=== PATIENT | male | born 2000 | race Caucasian/White ===

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

== ENCOUNTER 2019-01-19 10:07 | Emergency (ER) | payer BC, SELFPAY ==
[2019-01-19 10:08] VITALS: BP 112/46; PULSE 64; RESP 16; TEMP 36.2; O2SAT 99; BMI 20.5
--- NOTE | 2019-01-19 10:17 | RAD_ITS ---
STUDY: X-RAY - RIGHT HAND, ATTENTION THUMB. REASON FOR EXAM: Male, 19 years old. Injury to the thumb. TECHNIQUE: 3 view(s) of the finger were obtained. COMPARISON: None. FINDINGS: Normal metacarpal head. Normal metacarpophalangeal joint. Normal proximal phalanx. Normal middle phalanx. Normal distal phalanx. Normal proximal interphalangeal joint. Normal distal interphalangeal joint. RAD/Finger(s) Min 2 Views IMPRESSION: Normal x-ray examination of the finger. Electronically Signed: Mario Zacarias, at 10:46 EDT , Service support ,
--- NOTE | 2019-01-19 11:11 | ED.DCSUM_ITS ---
- ER Visit Summary Date of Service: 01/19/19 Chief Complaint: [Injury to right thumb] History of Present Illness: The patient is a 19 M [presents to the emergency department after injuring his right thumb yesterday. He accidentally smashed his thumb in a car door. Patient is right-hand dominant. Patient seen at urgent care and referred to the ER for evaluation.] Physical Examination: [Right thumb-patient has 100% subungual hematoma noted. Patient has soft tissue swelling to the thumb. Patient has normal range of motion at the IP joint. No obvious deformity. Neurovascular intact.] Test Results: [Obtained showed no fractures] Emergency Department Course and Treatment: [I recommended trephination of the nail to which the patient agreed. Using high heat cautery I was able to trephinate the nail and large amount of old blood was expressed. Clean dressing and cage splint will be applied.] Treatment Plan: [We will up with primary care physician in 5 to 7 days. Patient advised that his nail will likely fall off. Patient advised that he may develop a deformity to the nail or no new nail growth. It is also possible he may have a normal new nail growing.] Disposition: Discharged home in stable condition] Impression: [Crush injury right thumb Subungual hematoma right thumb with nail trephination] This note was generated with [employer] dictation software. It may contain incorrect words, spelling, and punctuation that were not noted in review of the chart prior to signing ED Disposition - Plan for ED Patient: Referrals: Danielito Madera MD [Primary Care Provider] -
--- NOTE | 2019-01-19 11:14 | ED.DEP ---
ED Disposition - Plan for ED Patient: Instructions: CRUSH INJURY, Hand/Finger, Subungual Hematoma Referrals: Danielito Madera MD [Primary Care Provider] - 5-7 Days
== END 2019-01-19 11:36 | disposition home or self-care (01) ==
PROVIDERS: Emergency Provider Emergency Medicine; Family Provider Pediatrics; PCP Pediatrics
DX: S67.01XA Crushing injury of right thumb, initial encounter (principal); S60.111A Contusion of right thumb with damage to nail, initial encounter; W23.0XXA Caught, crushed, jammed, or pinched between moving objects, initial encounter; Y93.9 Activity, unspecified; Y92.810 Car as the place of occurrence of the external cause; F12.90 Cannabis use, unspecified, uncomplicated
CPT/HCPCS: 11740; 11730; 73140; 99283

== ENCOUNTER 2019-02-26 10:35 | Emergency (ER) | payer BC, SELFPAY ==
[2019-02-26 10:36] VITALS: BP 109/73; PULSE 76; RESP 17; TEMP 36.9; O2SAT 98; BMI 20.5
[2019-02-26 10:57] VITALS: BP 117/80; PULSE 66; RESP 12; O2SAT 100
--- NOTE | 2019-02-26 11:11 | ED.VISSUMM ---
- ER Visit Summary Date of Service: 02/26/19 Chief Complaint: Cheeks and below his eyes. History of Present Illness: The patient is a 19 M no seen in past medical history. He has had surgery for prior traumatic intracranial bleed. Patient states he thinks he gets some of his hands and white on his face and now is having swelling from that. This began about an hour ago. He is on no medications. He is on no blood pressure medications. He had one episode of this before secondary to allergic reaction. He denies any wheezing. Physical Examination: Young male no acute distress vital signs stable afebrile. Pulse ox 9% on room air no signs of hypoxia. H EENT exam minimal swelling and redness to his cheeks and below both eyes. This is a with allergic reaction. His tongue and posterior pharynx and lips are not swollen. No trouble breathing or swallowing. No stridor or drooling. Neck nontender no lymphadenopathy. Trachea midline. Lungs clear to auscultation bilaterally. No wheezing. Heart regular rhythm no murmur. Chest wall nontender. Abdomen soft nontender. Moves all 4. No edema. Back nontender. Skin normal. Except for his face was has what appears to be a localized allergic reaction. Test Results: None Emergency Department Course and Treatment: Patient seems to have a localized allergic reaction with swelling of his face. There is no airway obstruction. He will be given a dose of steroid here. Treatment Plan: Prednisone 40 mL a day for 5 days if needed. Return if worse. Disposition: Discharge Impression: Acute facial swelling secondary to allergic reaction of uncertain etiology This note was generated with [employer] dictation software. It may contain incorrect words, spelling, and punctuation that were not noted in review of the chart prior to signing ED Disposition - Plan for ED Patient: Referrals: Danielito Madera MD [Primary Care Provider] -
--- NOTE | 2019-02-26 11:13 | ED.DEP ---
ED Disposition - Plan for ED Patient: Disposition: Home or Assisted Living Instructions: ALLERGIC REACTION, Other (Local) Prescriptions: predniSONE tablet 40 mg PO DAILY 7 Days tab Prescription Printed Referrals: Danielito Madera MD [Primary Care Provider] - As Needed Additional Instructions: Return if the swelling of your face lips or tongue gets a lot worse. Cool compresses to the area. Prednisone daily until the swelling is resolved.
[2019-02-26] MEDS: predniSONE 20 MG Tablet 40 MG PO (11:19)
[2019-02-26 11:24] VITALS: BP 118/75; PULSE 67; RESP 10; O2SAT 100
== END 2019-02-26 11:24 | disposition home or self-care (01) ==
LOC: ED 11:23
PROVIDERS: Emergency Provider Emergency Medicine; Family Provider Pediatrics; PCP Pediatrics
DX: T78.40XA Allergy, unspecified, initial encounter (principal); X58.XXXA Exposure to other specified factors, initial encounter
CPT/HCPCS: 99283; J7030; A4216

== ENCOUNTER 2020-03-23 16:57 | Emergency (ER) | payer BC, SELFPAY ==
[2020-03-23 16:58] VITALS: BP 129/86; PULSE 89; RESP 15; TEMP 36; O2SAT 99; BMI 19.1
--- NOTE | 2020-03-23 17:14 | ED.VIS.GEN ---
History of Present Illness Chief Complaint: Nausea/Vomiting Narrative: This patient is a 20-year-old male who presents with nausea and vomiting. He reports multiple episodes of emesis over the last 2 days. He complains of mild epigastric discomfort which he just attributed to vomiting and does not really describe his pain. He has also had diarrhea however this is been chronic for about 1 month. No fevers cough congestion rhinorrhea sore throat. He recently traveled from [place] to visit his family and his main concern is that his symptoms could possibly be due to Covid. Past Medical History - Allergies and Home Meds Allergies/Adverse Reactions: Allergies No Known Allergies Allergy (Verified 03/23/20 17:00) Primary Care Physician: Danielito Madera MD [Primary Care Provider] - Past Medical History: None Surgical History: no surgical history Smoking Status: Current every day smoker Review of Systems General: Denies: Fever Eyes: Denies: Visual changes - bilaterally ENT: Denies: Bilateral ear pain Cardiovascular: Denies: Chest pain Respiratory: Denies: Dyspnea Gastrointestinal: Reports: Nausea, Vomiting, Diarrhea. Denies: Abdominal pain Musculoskeletal: Denies: Myalgias, Arthralgias Skin: Denies: Rash Neurological: Denies: Headache Hematologic: Denies: Easy bruising Allergy: Denies: Uticaria Physical Exam Vital Signs/Narrative: Vital Signs Temp Pulse Resp BP Pulse Ox 03/23/20 16:58 96.8 F L 89 15 129/86 H 99 Inital Vital Signs reviewed: Yes General: Well nourished Head: Normocephalic Eyes: EOMI ENT: Moist mucous membranes Neck: Supple Cardiovascular: Regular rate, Regular rhythm Respiratory: No distress, CTA bilaterally Abdomen: Soft, Nontender, Nondistended Skin: Normal color Neurological: Alert Psychological: Normal affect Diagnostic/Tx/Re-eval 03/23/20 17:15 Mucosa - Nose SARS-CoV-2 Antigen (Rapid) - Final - Medical Decision Making Patient was given a Zofran ODT. He has had no vomiting while here. COVID-19 antigen is negative. Patient advised that his vomiting and diarrhea may be related to a viral syndrome. He has a benign abdominal exam with no tenderness and he has normal vitals. He was advised on supportive care. He was given a prescription for Zofran for home if needed. Patient discharged. He was advised on bland diet and supportive care. ED Disposition - Plan for ED Patient: Disposition: Home or Assisted Living Diagnosis: Vomiting Instructions: ED Vomiting (Adult) Prescriptions: Ondansetron [Zofran Odt] 4 mg PO Q8H PRN PRN #10 tab PRN Reason: Nausea Prescription Printed Referrals: Danielito Madera MD [Primary Care Provider] -
[2020-03-23] MEDS: Ondansetron ODT 4 MG Tablet PO (17:26)
== END 2020-03-23 18:12 | disposition home or self-care (01) ==
PROVIDERS: Emergency Provider Emergency Medicine; PCP Pediatrics
DX: R11.2 Nausea with vomiting, unspecified (principal); F17.200 Nicotine dependence, unspecified, uncomplicated
CPT/HCPCS: 87426; 99283

== ENCOUNTER 2020-04-03 12:17 | Emergency (ER) | payer MEDICAID, SELFPAY ==
[2020-04-03 12:19] VITALS: BP 116/71; PULSE 64; RESP 18; TEMP 36.3; O2SAT 98; BMI 19.1
--- NOTE | 2020-04-03 12:44 | ED.VISSUMM ---
- ER Visit Summary Date of Service: 04/03/20 Chief Complaint: Dental pain History of Present Illness: The patient is a 20 M who presents with dental pain that is been getting worse over the past 10 days. Patient states he has an appointment with his dentist coming up with his dentist told him to come to the emergency department in case he needed antibiotics. Patient describes his pain as throbbing. Patient states it is over the left lower canine and second molar. Patient states he has been taking ibuprofen which has been helping. Patient does admit to hot and cold sensitivity. Patient also admits to some lower jaw swelling which has improved. Physical Examination: Vital signs are stable. Patient is afebrile. Patient is in no acute distress. Oral mucosa is pink and moist. Neck is supple. Trachea is midline. There is no JVD. There are dental caries noted over the left lower canine and second molar. There is some mild gingival edema around this tooth. There is no discharge or drainage. There is no evidence of any abscess. There is no sublingual edema or erythema. There is no evidence of Adam angina. Emergency Department Course and Treatment: Patient was given a dose of Pen-Vee K here. Patient was given a prescription for Pen-Vee K. Patient was instructed to follow-up with his dentist as scheduled. Patient understood and was agreeable with the plan. All questions were answered. Disposition: Discharge home Impression: Infected dental caries This note was generated with [employer] dictation software. It may contain incorrect words, spelling, and punctuation that were not noted in review of the chart prior to signing ED Disposition - Plan for ED Patient: Disposition: Home or Assisted Living Diagnosis: Infected dental caries Instructions: ED Dental Cavity Prescriptions: Penicillin V Potassium 500 mg PO 4X/DAY #40 tab Prescription Printed Referrals: Danielito Madera MD [Primary Care Provider] - 5-7 Days Dentist,Your [STAFF PHYSICIAN] - Keep [place] appointment
[2020-04-03] MEDS: Penicillin Vk 250 MG Tablet 500 MG PO (12:57)
== END 2020-04-03 12:59 | disposition home or self-care (01) ==
LOC: ED 12:48
PROVIDERS: Emergency Provider Emergency Medicine; PCP Pediatrics
DX: K02.9 Dental caries, unspecified (principal); K04.7 Periapical abscess without sinus
CPT/HCPCS: 99283

== ENCOUNTER 2020-10-09 20:34 | Emergency (ER) | payer MEDICAID, SELFPAY ==
[2020-10-09 20:36] VITALS: BP 115/72; PULSE 81; RESP 16; TEMP 36.3; O2SAT 98; BMI 20.7
--- NOTE | 2020-10-09 21:13 | CT_ITS ---
EXAMINATION : Head CT w/out contrast HISTORY : Head injury COMPARISON : None. TECHNIQUE : Multiple contiguous axial images were obtained from the skull base to the vertex without intravenous contrast. A radiation dose optimization technique was used for this scan. FINDINGS : The ventricles and sulci are normal in size. There is no evidence for acute intracranial hemorrhage, mass effect, or midline shift. There is no extra-axial fluid collection. There is normal day-white differentiation, without CT evidence of acute ischemia or infarct. The skull base and calvarium are unremarkable. The orbits are unremarkable. The paranasal sinuses are clear. The mastoid air cells are well-aerated. The soft tissues are unremarkable. CT/Brain/Head without Contrast IMPRESSION: No acute intracranial abnormality. Electronically Signed: Charles Dominguez MD at 21:35 EDT Tel , Service support ,
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
[2020-10-09 22:07] VITALS: BP 116/70; PULSE 78; RESP 16
== END 2020-10-09 22:07 | disposition home or self-care (01) ==
PROVIDERS: Emergency Provider Emergency Medicine
DX: S09.90XA Unspecified injury of head, initial encounter (principal); V09.20XA Pedestrian injured in traffic accident involving unspecified motor vehicles, initial encounter
CPT/HCPCS: 70450; 99282

== ENCOUNTER 2020-10-23 15:02 | Emergency (ER) | payer MEDICAID, SELFPAY ==
[2020-10-23 15:02] VITALS: BP 118/67; PULSE 78; RESP 16; TEMP 36.5; O2SAT 97; BMI 20.2
--- NOTE | 2020-10-23 17:18 | RAD_ITS ---
INDICATION: constipation EXAMINATION/TECHNIQUE: X-RAY - XR Abdomen 1 View COMPARISON: None FINDINGS: BOWEL GAS PATTERN: Non-obstructive. Small amount of retained stool in the colon. FREE AIR: Not assessed on a single supine view. ORGANOMEGALY: Not seen. CALCIFICATIONS: No abnormal calcifications observed. LOWER CHEST: No acute pathology. BONES AND SOFT TISSUES: No acute pathology. RAD/Abdomen Single View IMPRESSION: Non-obstructive bowel gas pattern. Small amount of retained stool in the colon. Electronically Signed: Charles Dominguez MD at 17:38 EDT Tel , Service support ,
--- NOTE | 2020-10-23 17:32 | EX.ED.DYSGE1 ---
HPI History of Present Illness Chief Complaint: Constipation Informant: patient Narrative Narrative: 20-year-old male states for the past week he has had difficulty moving his bowels. He states that his anus feels swollen. He denies any bleeding. He has been trying some [id number] stool softener. He states he had a similar occurrence about a year and a half ago when he required an enema. PFSH PFSH Home Medications hydrocortisone [Anusol-HC] 1 applic [place] TID PRN #30 g 10/23/20 [Rx Last Taken Unknown] magnesium citrate 300 ml PO X1 #2 bottle 10/23/20 [Rx Last Taken Unknown] sennosides [Senna Lax] 8.6 mg PO DAILY 10/23/20 [History Last Taken 10/23/20] Allergy/AdvReac Type Severity Reaction Status Date / Time coconut Allergy Swelling Verified 10/23/20 15:04 Social History Smoking Status: Current every day smoker tobacco type: e-cigarettes ROS ROS ED Constitutional Constitutional ED: Denies chills or weight loss Eyes Eyes: Denies change in vision or diplopia ENT ENT ED: Denies ear pain, rhinorrhea or sore throat Cardiovascular Cardiovascular: Denies chest pain, orthopnea, palpitations or racing heartbeat Respiratory/Chest Respiratory/Chest: Denies cough, dyspnea or orthopnea Gastrointestinal Gastrointestinal: Reports constipation and other Details: Rectal pain ; Denies abdominal pain, diarrhea, nausea or vomiting Genitourinary Genitourinary ED: Denies dysuria, hematuria or urinary frequency Musculoskeletal Musculoskeletal: Denies arthralgias or myalgias Integumentary Denies abscess or rash Neurologic Neurologic: Denies headache(s) or weakness Psychiatric Psychiatric: Denies anxiety, depression, suicidal ideation or suicidal thoughts Endocrine Endocrinology: Denies polydipsia, polyphagia or polyuria Allergic/Immunologic Allergic/Immunologic ED: Denies mouth swelling, tongue swelling or urticaria EXAM Physical Exam Const Vital Signs: 10/23/20 15:02 Temperature 97.7 F L Temperature Source Temporal Pulse Rate 78 Respiratory Rate 16 Blood Pressure 118/67 Blood Pressure Mean 84 Pulse Ox 97 Oxygen Delivery Method Room Air Positive well nourished and well developed General Appearance ED: well developed HEENT Reports normocephalic, head/scalp atraumatic and moist mucous membranes Eyes PERRL and EOMs intact bilaterally Neck no lymphadenopathy, supple and no JVD Resp normal respiratory effort and clear to auscultation bilaterally Cardio regular rate, regular rhythm and no murmurs GI normal to inspection, nondistended, normoactive bowel sounds and non-tender Palpation: soft Narrative: Rectal examination shows a normal-appearing anus. There is some soft stool in the rectal vault. There is no blood on the glove. Back/Spine no CVA tenderness and normal ROM Extremity normal to inspection General Extremety ED: Negative for edema General Extremity: Negative for edema Neuro oriented x3 and CN's II-XII intact bilaterally Sensorium / Orientation: alert Motor Exam: strength 5/5 throughout Psych mental status grossly normal Mood & Affect: Negative for depressed or tearful Skin no rashes or lesions noted and no wounds MDM MDM MDM Narrative Medical decision making narrative: X-rays did not reveal fecal impaction or obstruction., Recommend that the patient use some magnesium citrate in addition to a stool softener. He shows me a picture of what his anus looks like when it is swollen and appears more hemorrhoidal. I will write for some Anusol HC. Discharge Plan Triage Chief Complaint: Constipation ED Provider: Garth Mo Dx/Rx/DC Orders Clinical Impression: Constipation, Anal or rectal pain Instructions: ED Constipation (Adult) Prescriptions: New magnesium citrate Solution 300 ml PO X1 Qty: 2 RF: 0 hydrocortisone [Anusol-HC] 2.5 % cream with perineal applicator 1 applic [place] TID PRN (Reason: Rectal pain) Qty: 30 RF: 0 No Action sennosides [Senna Lax] 8.6 mg Tablet 8.6 mg PO DAILY RF: 0 Primary Care Provider: Care Physician,No Primary Referrals: Jeanine Uriarte MD [STAFF PHYSICIAN] - As Needed (for primary care/non-emergent care) Care Physician,No Primary [Primary Care Provider] - Disposition Disposition: Home, Self Care
[2020-10-23 17:47] VITALS: PULSE 76; RESP 16; O2SAT 98
== END 2020-10-23 17:47 | disposition home or self-care (01) ==
PROVIDERS: Emergency Provider Emergency Medicine
DX: K59.00 Constipation, unspecified (principal); K62.89 Other specified diseases of anus and rectum; F17.290 Nicotine dependence, other tobacco product, uncomplicated
CPT/HCPCS: 74018; 99282

== ENCOUNTER 2020-11-16 17:16 | Emergency (ER) | payer MEDICAID, SELFPAY ==
[2020-11-16 17:19] VITALS: BP 115/65; PULSE 67; RESP 14; TEMP 37.1; O2SAT 98; BMI 20.2
--- NOTE | 2020-11-16 18:46 | ED.VIS.DENTA ---
HPI History of Present Illness Chief Complaint: Dental Informant: patient Onset/Context/Timing Onset: Today Timing: Continuous Quality: Sharp Location: Right cheek Worsened by: Chewing Relieved by: - (Nothing) Associated Symptoms Assocated Symptom - Dental: face swelling; Negative for fever, cold sensitivity or hot sensitivity Narrative Narrative: Patient presents with right facial swelling that began today. Patient states he went to get his wisdom teeth extracted today. Patient states the oral surgeon injected something into his right cheek and there is some swelling in his right cheek that has been persistent. Patient denies any fevers or chills. Patient denies any sore throat. Patient denies any difficulty breathing or difficulty swallowing. PFSH PFSH no medical history Home Medications NK 11/16/20 [History Last Taken Unknown] Allergy/AdvReac Type Severity Reaction Status Date / Time coconut Allergy Swelling Verified 11/16/20 17:18 no surgical history Social History Smoking Status: Current every day smoker tobacco type: e-cigarettes ROS ROS ED Constitutional Constitutional ED: Denies chills or fever(s) Eyes Eyes: Denies blurry vision or change in vision ENT ENT ED: Denies rhinorrhea or sore throat Cardiovascular Cardiovascular: Denies chest pain or palpitations Respiratory/Chest Respiratory/Chest: Denies cough or dyspnea Gastrointestinal Gastrointestinal: Denies nausea or vomiting Genitourinary Genitourinary ED: Denies dysuria or hematuria Musculoskeletal Musculoskeletal: Denies back pain or neck pain Integumentary Denies abscess or rash Neurologic Neurologic: Denies headache(s) or weakness Allergic/Immunologic Allergic/Immunologic ED: Denies mouth swelling or urticaria EXAM Physical Exam Const Vital Signs: 11/16/20 17:19 Temperature 98.7 F Temperature Source Temporal Pulse Rate 67 Respiratory Rate 14 Blood Pressure 115/65 Blood Pressure Mean 81 Pulse Ox 98 Oxygen Delivery Method Room Air Positive well nourished and well developed General Appearance ED: well developed HEENT HEENT Narrative: There is some edema over the right cheek and buccal mucosa. There is no definite abscess. There is no erythema or warmth. There is no discharge or drainage. Oropharynx is clear. Airway is patent. There is no sublingual edema or erythema. tenderness Mouth ED: Yes tongue normal Mouth: tongue normal Throat: posterior oropharynx normal Neck no lymphadenopathy and supple General: Negative for anterior neck swelling or submandibular swelling Lymph Lymphatic: no lymphadenopathy noted Resp normal respiratory effort and clear to auscultation bilaterally Cardio regular rate and regular rhythm Neuro oriented x3, CN's II-XII intact bilaterally, moves all extremities, no focal motor deficits and no sensory deficits noted Sensorium / Orientation: alert Psych mental status grossly normal MDM MDM MDM Narrative Medical decision making narrative: Patient was given a dose of Pen-Vee K here. Patient was given a prescription for Pen-Vee K. Patient was instructed use ice to the area. Patient was instructed to follow-up with his oral surgeon in 7 to 10 days. Patient understood and was agreeable with the plan. All questions were answered. Discharge Plan Triage Chief Complaint: Dental ED Provider: Keven Freeman Dx/Rx/DC Orders Clinical Impression: Dental infection Instructions: ED Dental Abscess Prescriptions: No Action NK RF: 0 Primary Care Provider: Care Physician,No Primary Referrals: Care Physician,No Primary [Primary Care Provider] - Dentist,Your [STAFF PHYSICIAN] - 1-2 Weeks Disposition Disposition: Home, Self Care
[2020-11-16] MEDS: Penicillin Vk 250 MG Tablet 500 MG PO (19:04)
== END 2020-11-16 19:06 | disposition home or self-care (01) ==
LOC: ED 19:04
PROVIDERS: Emergency Provider Emergency Medicine
DX: K04.7 Periapical abscess without sinus (principal); F17.200 Nicotine dependence, unspecified, uncomplicated
CPT/HCPCS: 99283

== ENCOUNTER 2023-05-05 11:17 | Emergency (ER) | payer MEDICAID, SELFPAY ==
[2023-05-05 11:17] VITALS: BP 115/72; PULSE 78; RESP 16; TEMP 36.9; O2SAT 99; BMI 21.0
--- OUTSIDE RECORDS SUMMARY | 2023-05-05 12:50 | XMS RPT_ITS | CCD ---
Author Name Unknown Address [address] [place] [address] Organization [facility] Care Team Providers Care Chargeback Analyst Name Role Phone Maura Nash Unavailable Maura Nash Unavailable Maura Nash Unavailable Danielito Urena MD Primary Care Provider Danielito Urena MD Primary Care Provider MARIBELL ELLIOTT Attending Unavailable DANIELITO URENA Primary Care Unavailable HALEY ALTMAN Attending Unavailable DANIELITO URENA Primary Care Unavailable Medications Current Medications Medication Drug Class(es) Dates Sig (Normalized) Sig (Original) hydrocortisone 25 mg/ml topical cream (2 sources) Corticosteroid Start: 10-23-2020 End: 02-23-2023 hydrocortisone (ANUSOL-HC) 2.5 % rectal cream Indications: External hemorrhoid by RECTAL route two times a day for 5 days. 28 g 0 02/18/2023 02/23/2023 Active Completed/Discontinued Medications Medication Drug Class(es) Dates Sig (Normalized) Sig (Original) ACETAMINOPHEN-CO DEINE SOLN (3 sources) Opioid Agonist Start: 11-17-2013 ACETAMINOPHEN-CODEINE SOLN 25 ml every 6 hrs ACETAMINOPHEN-CODEINE SOLN [id number] Alf Jules famotidine 20 mg oral tablet (1 source) Histamine-2 Receptor Antagonist Start: 04-14-2020 End: 09-12-2021 take 1 tablet by mouth every twenty-four hours as needed for gastroesophageal reflux disease and gastroesophageal reflux disease famotidine (PEPCID) 20 mg tablet Indications: Gastroesophageal reflux disease, unspecified whether esophagitis present Take 1 tablet by mouth at bedtime as needed. 30 tablet 0 04/14/2020 09/12/2021 Discontinued Problems Active Problems Problem Classification Problem Date Documented Da te Episodic/Chronic Diseases of mouth; excluding dental (1 source) Aphthous ulcer of mouth; Translations: [Recurrent oral aphthae] Episodic Hemorrhoids (3 sources) Internal hemorrhoids; Translations: [Other hemorrhoids] Episodic Other gastrointestinal disorders (1 source) Chronic constipation; Translations: [Other constipation] 02-18-2023 Episodic Past or Other Problems Problem Classification Problem Date Documented Da te Episodic/Chronic Fracture of upper limb (6 sources) Fracture of unspecified part of left clavicle, initial encounter for closed fracture; Translations: [Closed fracture of distal end of radius] Onset: 11-17-2013 07-07-2016 Episodic Other fractures (2 sources) Fracture of unspecified part of left clavicle, subsequent encounter for fracture with routine healing; Translations: [Fracture of unspecified part of left clavicle, subsequent encounter for fracture with routine healing] Onset: 08-12-2016 08-29-2016 Episodic Other non-traumatic joint disorders (3 sources) Shoulder pain; Translations: [Pain in left shoulder] Onset: 06-26-2016 06-26-2016 Episodic Results Test Name Value Interpretation Reference Range Facil it Vital Signs Date Time Vital Sign Value Performing Clinician Facility 02-24-2023 14:08-0500 Body height 165.1 cm Maribell Elliott MD Work Phone: [facility] 02-24-2023 14:08-0500 Body temperature 97.9 [degF] Maribell Elliott MD Work Phone: [facility] 02-24-2023 14:08-0500 Body weight 60.15 kg Maribell Elliott MD Work Phone: [facility] 02-24-2023 14:08-0500 Diastolic blood pressure 58 mm[Hg] Maribell Elliott MD Work Phone: [facility] 02-24-2023 14:08-0500 Heart rate 83 /min Maribell Elliott MD Work Phone: [facility] 02-24-2023 14:08-0500 SaO2% (BldA) [Mass fraction] 98 % Maribell Elliott MD Work Phone: [facility] 02-24-2023 14:08-0500 Systolic blood pressure 116 mm[Hg] Maribell Elliott MD Work Phone: [facility] 02-18-2023 14:16-0500 Body temperature 98.1 [degF] Haley Agapito MONTESSORI TODDLER TEACHER.COAL PULVERIZER OPERATOR Work Phone: [facility] 02-18-2023 14:16-0500 Body weight 57.88 kg Haley Agapito MONTESSORI TODDLER TEACHER.COAL PULVERIZER OPERATOR Work Phone: [facility] 02-18-2023 14:16-0500 Diastolic blood pressure 78 mm[Hg] Haley Agapito MONTESSORI TODDLER TEACHER.COAL PULVERIZER OPERATOR Work Phone: [facility] 02-18-2023 14:16-0500 Heart rate 74 /min Haley Agapito MONTESSORI TODDLER TEACHER.COAL PULVERIZER OPERATOR Work Phone: [facility] 02-18-2023 14:16-0500 Respiratory rate 16 /min Haley Agapito MONTESSORI TODDLER TEACHER.COAL PULVERIZER OPERATOR Work Phone: [facility] 02-18-2023 14:16-0500 SaO2% (BldA) [Mass fraction] 97 % Haley Agapito MONTESSORI TODDLER TEACHER.COAL PULVERIZER OPERATOR Work Phone: [facility] 02-18-2023 14:16-0500 Systolic blood pressure 122 mm[Hg] Haley Agapito MONTESSORI TODDLER TEACHER.COAL PULVERIZER OPERATOR Work Phone: [facility] 09-12-2021 11:07-0400 Body temperature 97.7 [degF] Mike Yeboah MD Work Phone: [facility] 09-12-2021 11:07-0400 Body weight 57.34 kg Mike Yeboah MD Work Phone: [facility] 09-12-2021 11:07-0400 Diastolic blood pressure 82 mm[Hg] Mike Yeboah MD Work Phone: [facility] 09-12-2021 11:07-0400 Heart rate 60 /min Mike Yeboah MD Work Phone: [facility] 09-12-2021 11:07-0400 Respiratory rate 16 /min Mike Yeboah MD Work Phone: [facility] 09-12-2021 11:07-0400 SaO2% (BldA) [Mass fraction] 98 % Mike Yeboah MD Work Phone: [facility] 09-12-2021 11:07-0400 Systolic blood pressure 118 mm[Hg] Mike Yeboah MD Work Phone: [facility] 06-26-2016 08:17-0400 BMI (Body Mass Index) 20.94 kg/m2 [facility] Work Phone: 06-26-2016 08:17-0400 Height 162.56 cm [facility] Work Phone: 06-26-2016 08:17-0400 Weight 55.34 kg [facility] Work Phone: Encounters Encounter Date Encounter Type Care Provider Facility Start: 02-24-2023 End: 02-24-2023 ambulatory MARIBELL ELLIOTT Facility:[facility] Start: 02-24-2023 End: 02-24-2023 Patient encounter procedure Maribell Elliott MD Work Phone: General Surgery Plan of Treatment Date Care Activity Detail Author Start: 11-29-2022 Influenza vaccination Influenza Vaccine (#1) [facility] Start: 03-31-2022 Depression Assessment Depression Assessment [facility] Start: 11-29-2021 Influenza vaccination INFLUENZA (Season Ended) [facility] Start: 10-22-2021 Urine microalbumin profile [facility] Start: 2017 HEPATITIS C SCREENING HEPATITIS C SCREENING [facility] Start: 2017 HIV SCREENING HIV SCREENING [facility] Start: 08-12-2016 End: 08-12-2016 X-ray exam of collar bone X-Ray, Clavicle [facility] Work Phone: Start: 06-26-2016 End: 06-26-2016 X-ray exam of collar bone X-Ray, Clavicle [facility] Work Phone: Start: 2015 Meningococcal B Vaccine: Consider Based On Risk (1 of 2 - Patient Seeks Protection) Meningococcal B Vaccine: Consider Based On Risk (1 of 2 - Patient Seeks Protection) [facility] Start: 12-29-2013 End: 12-29-2013 X-ray exam of wrist X-Ray, Wrist [facility] Work Phone: Start: 12-15-2013 End: 12-15-2013 X-ray exam of wrist X-Ray, Wrist [facility] Work Phone: Start: 11-17-2013 End: 11-17-2013 X-ray exam of wrist X-Ray, Wrist [facility] Work Phone: Start: 2013 PEDS TO ADULT TRANSITION ANNUAL ASSESSMENT PEDS TO ADULT TRANSITION ANNUAL ASSESSMENT [facility] Start: 2011 Adult depression screening assessment DEPRESSION SCREENING [facility] Start: 2011 PEDS TO ADULT TRANSITION INITIAL DISCUSSION PEDS TO ADULT TRANSITION INITIAL DISCUSSION [facility] Start: 2009 MENINGOCOCCAL B: Consider based on risk (1 of 2 - Risk Bexsero 2-dose series) MENINGOCOCCAL B: Consider based on risk (1 of 2 - Risk Bexsero 2-dose series) [facility] Start: 01-10-2004 COVID-19 VACCINE (#1) COVID-19 VACCINE (#1) [facility] Start: 1999 Covid-19 Vaccine (#1) Covid-19 Vaccine (#1) [facility] Immunizations Immunization Date Immunization Notes Care Provider Fa surya 02-28-2016 meningococcal polysaccharide (groups A, C, Y and W-135) diphtheria toxoid conjugate vaccine (MCV4P) Mike Yeboah MD Work Phone: [facility] 02-12-2013 human papilloma viru s vaccine, quadrivalent Mike Yeboah MD Work Phone: [facility] 09-18-2012 human papilloma viru s vaccine, quadrivalent Mike Yeboah MD Work Phone: [facility] 10-23-2011 human papilloma viru s vaccine, quadrivalent Mike Yeboah MD Work Phone: [facility] 10-23-2011 Meningococcal, MCV4, unspecified conjugate formulation(groups A, C, Y and W-135) Mike Yeboah MD Work Phone: [facility] 10-23-2011 tetanus toxoid, redu fatou diphtheria toxoid, and acellular pertussis vaccine, adsorbed Mike Yeboah MD Work Phone: [facility] 10-23-2011 varicella virus vaccine Eugenio Yeboah MD Work Phone: [facility] 01-13-2004 diphtheria, tetanus toxoids and acellular pertussis vaccine Mike Yeboah MD Work Phone: [facility] Work Phone: 01-13-2004 haemophilus influenz ae type b vaccine, HbOC conjugate Mike Yeboah MD Work Phone: [facility] Work Phone: 01-13-2004 pneumococcal conjuga te vaccine, 7 valent Mike Yeboah MD Work Phone: [facility] Work Phone: 03-01-2003 diphtheria, tetanus toxoids and acellular pertussis vaccine Mike Yeboah MD Work Phone: [facility] Work Phone: 03-01-2003 measles, mumps and rubella virus vaccine Mike Yeboah MD Work Phone: [facility] Work Phone: 03-01-2003 poliovirus vaccine, inactivated Mike Yeboah MD Work Phone: [facility] Work Phone: 10-13-2001 diphtheria, tetanus toxoids and acellular pertussis vaccine Mike Yeboah MD Work Phone: [facility] Work Phone: 10-13-2001 hepatitis B vaccine, pediatric or pediatric/adolescent dosage Mike Yeboah MD Work Phone: [facility] Work Phone: 09-22-2000 diphtheria, tetanus toxoids and acellular pertussis vaccine Mike Yeboah MD Work Phone: [facility] Work Phone: 09-22-2000 haemophilus influenz ae type b vaccine, HbOC conjugate Mike Yeboah MD Work Phone: [facility] Work Phone: 09-22-2000 hepatitis B vaccine, pediatric or pediatric/adolescent dosage Mike Yeboah MD Work Phone: [facility] Work Phone: 09-22-2000 pneumococcal conjuga te vaccine, 7 valent Mike Yeboah MD Work Phone: [facility] Work Phone: 09-22-2000 poliovirus vaccine, inactivated Mike Yeboah MD Work Phone: [facility] Work Phone: 09-22-2000 varicella virus vaccine Eugenio Yeboah MD Work Phone: [facility] Work Phone: 02-20-2000 haemophilus influenz ae type b vaccine, HbOC conjugate Mike Yeboah MD Work Phone: [facility] Work Phone: 02-20-2000 measles, mumps and rubella virus vaccine Mike Yeboah MD Work Phone: [facility] Work Phone: 02-20-2000 poliovirus vaccine, inactivated Mike Yeboah MD Work Phone: [facility] Work Phone: 1999 diphtheria, tetanus toxoids and acellular pertussis vaccine Mike Yeboah MD Work Phone: [facility] Work Phone: 1999 haemophilus influenz ae type b vaccine, HbOC conjugate Mike Yeboah MD Work Phone: [facility] Work Phone: 1999 hepatitis B vaccine, pediatric or pediatric/adolescent dosage Mike Yeboah MD Work Phone: [facility] Work Phone: 1999 poliovirus vaccine, inactivated Mike Yeboah MD Work Phone: [facility] Work Phone: Payers Date Payer Category Payer Unknown MARIA ESTHER VO SS PPO [id number] 2023-Present [phone] [address] [place] [address] PPO [id number] 2023 Unknown [id number] 2020 Medicaid [employer] [id number] 2020-Present [phone] [address] [place] [address] Medicaid [id number] Social History Date Type Detail Facility Start: 08-09-2011 End: 02-18-2023 Tobacco smoking status WVIS Never smoked tobacco [facility] Work Phone: Start: 08-09-2011 End: 02-18-2023 Tobacco use and exposure Smokeless tobacco non-user [facility] Work Phone: Start: 09-12-2021 End: 02-24-2023 Alcohol intake Current non-drinker of alcohol (finding) [facility] Start: 2000 Sex Assigned At Not on file [facility] Start: 09-02-2021 End: 09-12-2021 Exposure to SARS-CoV-2 (event) Not sure [facility] Work Phone: Start: 02-18-2023 End: 02-24-2023 History of Social function [facility] Start: 02-18-2023 End: 02-24-2023 Tobacco use panel [facility] National Score (1-100), lower number is lower risk Not on file [facility] Start: 02-18-2023 Tobacco Comment outside [facility] Progress note 02-24-2023 Note Date & Type Note Facility 02-24-2023 Note HNO ID: [id number] Author: Maribell Elliott MD Service: ? Author Type: Physician Type: Progress Notes Filed: 02/24/2023 3:48 PM Note Text: Hany Browning 2000 REFERRING PHYSICIAN: Haley Altman APRN.CNP CHIEF COMPLAINT: Consult (Hemorrhoids) HPI: The patient is a 23 year old male presents with complaint of hemorrhoids. He admits to prolonged sitting on toilet and straining. He notes initially hard stools and then looser stools after. He notes a bowel movement once or twice a day. He notes occasional BRBPR on toilet paper. He is using hydrocortisone cream and miralax. Girlfriend states that she is very concerned because patient's grandfather presented with same presentation - presumed hemorrhoid diseaese and had to go thru urgent surgery and she doesn't want problems in the future for the patient. She also states that what is seen externally, is only a small part of what is internal. I have offered colonoscopy I have offered incising thrombosed hemorrhoid They would like second opinion The patient states that his girlfriend is a daughter of a health care provider. They are amenable to being seen by a colorectal surgeon. PAST MEDICAL HISTORY Diagnosis Date Arthritis Chronic constipation Diarrhea Head injury head/spinal injury Hemorrhoids, external NEGATIVE HISTORY OF 05/26/2014 Normal Color Vision Skull fracture (HCC) PAST SURGICAL HISTORY Procedure Laterality Date CIRCUMCISION PAST SURGICAL HISTORY OF 07/2011 skull fracture and hematoma Current Outpatient Medications Medication Sig hydrocortisone 2.5 % cream Hydrocortisone (Anusol-Hc) 2.5 % cream with perineal applicator Active 1 APPLIC RC THREE TIMES A DAY October 23, 2020 5:39pm polyethylene glycol 3350 (MIRALAX) 17 gram/dose powder Take 1 heaping cap daily No current facility-administered medications for this visit. ALLERGIES: Patient has no known allergies. PERSONAL HISTORY: Social History Tobacco Use Smoking status: Never Smokeless tobacco: Never Tobacco comments: outside Substance Use Topics Alcohol use: No Drug use: No FAMILY HISTORY Problem Relation Age of Onset Diabetes Maternal Grandmother Hypertension Maternal Grandmother Heart Maternal Grandfather Cancer Maternal Grandmother colon and ovarian The review of systems data was entered by the nurse and reviewed by me Nursing Notes: Ashley Moraes RN 02/24/2023 2:24 PM Signed REVIEW OF SYSTEMS: General: The patient NOTES fatigue, denies weight loss, denies weight gain, NOTES feeling hot, and NOTES feelings of cold. Eyes: The patient denies glaucoma, denies eye injury/surgery, does not wear glasses or contacts. Ear/Nose/Throat: The patient denies allergies, denies hayfever, denies ear infections, and denies bloody noses. Cardiovascular: The patient denies chest pain, denies heart disease, denies high blood pressure,denies cardiac stent, denies prior heart attack, denies irregular heart beat, denies high cholesterol, NOTES poor circulation, denies heart failure, other cardiac issues, denies claudication, NOTES cold feet, denies peripheral arterial stent. Respiratory: The patient denies tuberculosis, denies pneumonia, denies frequent cough, denies pulmonary embolism, NOTES shortness of breath, and denies coughing up blood. Gastrointestinal: The patient denies difficulty swallowing, denies acid reflux, denies ulcers, denies vomiting, denies jaundice/hepatitis, denies gallbladder problems, denies black or tarry stools, NOTES hemorrhoids, denies bleeding from rectum, denies diverticulitis, NOTES constipation, NOTES diarrhea, denies loss of stool control, and denies hernias. Kidney/Bladder: The patient denies kidney stones, denies urine infections, and denies bloody urine. Skin: The patient denies a history of skin cancer, denies bleeding/changing moles, and denies a history of skin rash. Neurologic: The patient denies a history of epilepsy/convulsions, denies headaches, NOTES head/spinal injuries, and denies stroke/TIA. Psychiatric: The patient denies psychiatric medications, denies depression, and denies voices, denies substance abuse. Endocrine: The patient denies thyroid disorders, denies diabetes, and denies hormonal problems. Hematologic: The patient denies a history of bruising, denies bleeding, and denies anemia, denies blood clots. Infections: The patient denies a history of measles and mumps, denies rheumatic fever, and denies sexually transmitted diseases. Musculoskeletal: The patient denies back pain/injury, denies back problems, denies sciatica, denies knee/foot trouble, NOTES arthritis, or denies gout. When was patient's last Mammogram screening? N/A Last Colonoscopy: None Ashley Moraes RN PHYSICAL EXAMINATION: General: The patient is 23 year old male, well nourished, well hydrated in no acute distress. The patient is oriented to priyank (more content not included)... [facility] History of Present illness Narrative 02-24-2023 Maribell Elliott MD - 02/24/2023 2:25 PM EST Note Date & Type Note Facility 02-24-2023 History of Presen t illness Narrative Hany Browning 2000 REFERRING PHYSICIAN: Haley Altman APRN.COAL PULVERIZER OPERATOR CHIEF COMPLAINT: Consult (Hemorrhoids) HPI: The patient is a 23 year old male presents with complaint of hemorrhoids. He admits to prolonged sitting on toilet and straining. He notes initially hard stools and then looser stools after. He notes a bowel movement once or twice a day. He notes occasional BRBPR on toilet paper. He is using hydrocortisone cream and miralax. Girlfriend states that she is very concerned because patient's grandfather presented with same presentation - presumed hemorrhoid diseaese and had to go thru urgent surgery and she doesn't want problems in the future for the patient. She also states that what is seen externally, is only a small part of what is internal. I have offered colonoscopy I have offered incising thrombosed hemorrhoid They would like second opinion The patient states that his girlfriend is a daughter of a health care provider. They are amenable to being seen by a colorectal surgeon. PAST MEDICAL HISTORY Diagnosis Date Arthritis Chronic constipation Diarrhea Head injury head/spinal injury Hemorrhoids, external NEGATIVE HISTORY OF 05/26/2014 Normal Color Vision Skull fracture (HCC) PAST SURGICAL HISTORY Procedure Laterality Date CIRCUMCISION PAST SURGICAL HISTORY OF 07/2011 skull fracture and hematoma Current Outpatient Medications Medication Sig hydrocortisone 2.5 % cream Hydrocortisone (Anusol-Hc) 2.5 % cream with perineal applicator Active 1 APPLIC RC THREE TIMES A DAY October 23, 2020 5:39pm polyethylene glycol 3350 (MIRALAX) 17 gram/dose powder Take 1 heaping cap daily No current facility-administered medications for this visit. ALLERGIES: Patient has no known allergies. PERSONAL HISTORY: Social History Tobacco Use Smoking status: Never Smokeless tobacco: Never Tobacco comments: outside Substance Use Topics Alcohol use: No Drug use: No FAMILY HISTORY Problem Relation Age of Onset Diabetes Maternal Grandmother Hypertension Maternal Grandmother Heart Maternal Grandfather Cancer Maternal Grandmother colon and ovarian The review of systems data was entered by the nurse and reviewed by ne Nursing Notes: Ashley Moraes RN 02/24/2023 2:24 PM Signed REVIEW OF SYSTEMS: General: The patient NOTES fatigue, denies weight loss, denies weight gain, NOTES feeling hot, and NOTES feelings of cold. Eyes: The patient denies glaucoma, denies eye injury/surgery, does not wear glasses or contacts. Ear/Nose/Throat: The patient denies allergies, denies hayfever, denies ear infections, and denies bloody noses. Cardiovascular: The patient denies chest pain, denies heart disease, denies high blood pressure,denies cardiac stent, denies prior heart attack, denies irregular heart beat, denies high cholesterol, NOTES poor circulation, denies heart failure, other cardiac issues, denies claudication, NOTES cold feet, denies peripheral arterial stent. Respiratory: The patient denies tuberculosis, denies pneumonia, denies frequent cough, denies pulmonary embolism, NOTES shortness of breath, and denies coughing up blood. Gastrointestinal: The patient denies difficulty swallowing, denies acid reflux, denies ulcers, denies vomiting, denies jaundice/hepatitis, denies gallbladder problems, denies black or tarry stools, NOTES hemorrhoids, denies bleeding from rectum, denies diverticulitis, NOTES constipation, NOTES diarrhea, denies loss of stool control, and denies hernias. Kidney/Bladder: The patient denies kidney stones, denies urine infections, and denies bloody urine. Skin: The patient denies a history of skin cancer, denies bleeding/changing moles, and denies a history of skin rash. Neurologic: The patient denies a history of epilepsy/convulsions, denies headaches, NOTES head/spinal injuries, and denies stroke/TIA. Psychiatric: The patient denies psychiatric medications, denies depression, and denies voices, denies substance abuse. Endocrine: The patient denies thyroid disorders, denies diabetes, and denies hormonal problems. Hematologic: The patient denies a history of bruising, denies bleeding, and denies anemia, denies blood clots. Infections: The patient denies a history of measles and mumps, denies rheumatic fever, and denies sexually transmitted diseases. Musculoskeletal: The patient denies back pain/injury, denies back problems, denies sciatica, denies knee/foot trouble, NOTES arthritis, or denies gout. When was patient's last Mammogram screening? N/A Last Colonoscopy: None Ashley Moraes RN PHYSICAL EXAMINATION: General: The patient is 23 year old male, well nourished, well hydrated in no acute distress. The patient is oriented to time, place, and person. VITALS: Blood pressure 116/58, pulse 83, temperature 36.6 C (97.9 F), height 165.1 cm (5' 5 ), weight 60.1 kg (132 lb 9.6 oz), SpO2 98 %. Body mass index is 22.07 kg/m . Head: Normal cephalic, atraumatic Eyes: pupils are equally round, sclera are clear/anicteric Neck is supple with no tracheal deviation Cardiac: normal heart sounds, regular Respiratory: normal breath sounds, normal respiratory excursion and pattern. Abdominal exam: benign Rectal: no anal canal masses, two small areas of thrombosed external hemorrhoids - about 3-5mm Extremities: no clubbing, cyanosis or edema. Neuro: non focal Psych: normal mood Assessment IMPRESSION: small external thrombosed hemorrhoids PLAN: I have discussed the above with the patient and his girlfriend who is present with him. I have offered colonoscopy for evaluation. The patient and his girlfriend are in agreement with this. I have offered incising thrombosed hemorrhoid to relieve patient's symptoms and explained the procedure. They would like second opinion The patient states that his girlfriend is a daughter of a health care provider. They are amenable to being seen by a colorectal surgeon. I will make a referral to colorectal surgery. The patient acknowledges the above. I have answered all questions to the patient s satisfaction and the patient has no further questions. I have confirmed and edited as necessary, the PFSH and ROS obtained by others. Consultation requested by Haley Altman for an opinion regarding patient's external hemorrhoid. My final recommendations will be communicated back to the requesting physician by way of shared Medical record or letter to requesting physician via US mail. . Diagnoses: (K64.4) External hemorrhoid Medical Decision Making: Problems: Low: Acute, uncomplicated illness or injury Medical Decision Making Level: 2 - Straightforward Maribell Ellitot MD documented in this encounter [facility] Nurse Note 02-24-2023 Ashley Moraes RN - 02/24/2023 2:23 PM EST Note Date & Type Note Facility 02-24-2023 Nurse Note REVIEW OF SYSTEMS: General: The patient NOTES fatigue, denies weight loss, denies weight gain, NOTES feeling hot, and NOTES feelings of cold. Eyes: The patient denies glaucoma, denies eye injury/surgery, does not wear glasses or contacts. Ear/Nose/Throat: The patient denies allergies, denies hayfever, denies ear infections, and denies bloody noses. Cardiovascular: The patient denies chest pain, denies heart disease, denies high blood pressure,denies cardiac stent, denies prior heart attack, denies irregular heart beat, denies high cholesterol, NOTES poor circulation, denies heart failure, other cardiac issues, denies claudication, NOTES cold feet, denies peripheral arterial stent. Respiratory: The patient denies tuberculosis, denies pneumonia, denies frequent cough, denies pulmonary embolism, NOTES shortness of breath, and denies coughing up blood. Gastrointestinal: The patient denies difficulty swallowing, denies acid reflux, denies ulcers, denies vomiting, denies jaundice/hepatitis, denies gallbladder problems, denies black or tarry stools, NOTES hemorrhoids, denies bleeding from rectum, denies diverticulitis, NOTES constipation, NOTES diarrhea, denies loss of stool control, and denies hernias. Kidney/Bladder: The patient denies kidney stones, denies urine infections, and denies bloody urine. Skin: The patient denies a history of skin cancer, denies bleeding/changing moles, and denies a history of skin rash. Neurologic: The patient denies a history of epilepsy/convulsions, denies headaches, NOTES head/spinal injuries, and denies stroke/TIA. Psychiatric: The patient denies psychiatric medications, denies depression, and denies voices, denies substance abuse. Endocrine: The patient denies thyroid disorders, denies diabetes, and denies hormonal problems. Hematologic: The patient denies a history of bruising, denies bleeding, and denies anemia, denies blood clots. Infections: The patient denies a history of measles and mumps, denies rheumatic fever, and denies sexually transmitted diseases. Musculoskeletal: The patient denies back pain/injury, denies back problems, denies sciatica, denies knee/foot trouble, NOTES arthritis, or denies gout. When was patient's last Mammogram screening? N/A Last Colonoscopy: None Ashley Moraes RN documented in this encounter [facility] Progress note 02-18-2023 Note Date & Type Note Facility 02-18-2023 Note HNO ID: [id number] Author: Haley Altman APRN.COAL PULVERIZER OPERATOR Service: ? Author Type: Nurse Practitioner Type: Progress Notes Filed: 02/18/2023 2:42 PM Note Text: Subjective HPI HPI Hany Browning is a 23 year old male who presents today for CC of itchy painful hemorrhoids. This started years ago. Has tried dietary changes and creams without relief. Symptoms are worsened by constipation that is chronic/intermittent. Denies abdominal pain. .Patient presents with: Rectal Problem: Hemorrhoids-very constipated PAST MEDICAL HISTORY Diagnosis Date NEGATIVE HISTORY OF 05-26-2014 Normal Color Vision Skull fracture (HCC) PAST SURGICAL HISTORY Procedure Laterality Date CIRCUMCISION PAST SURGICAL HISTORY OF 07/2011 skull fracture and hematoma ALLERGIES Patient has no known allergies. MEDICATIONS polyethylene glycol 3350 (MIRALAX) 17 gram/dose powder Take 1 heaping cap daily hydrocortisone (ANUSOL-HC) 2.5 % rectal cream by RECTAL route two times a day for 5 days. FAMILY HISTORY Problem Relation Age of Onset Diabetes Maternal Grandmother Hypertension Maternal Grandmother Heart Maternal Grandfather Cancer Maternal Grandmother colon and ovarian Social History Tobacco Use Smoking status: Never Smokeless tobacco: Never Tobacco comments: outside Substance Use Topics Alcohol use: No Drug use: No ROS Objective Blood pressure 122/78, pulse 74, temperature 36.7 ?C (98.1 ?F), temperature source Tympanic, resp. rate 16, weight 57.9 kg (127 lb 9.6 oz), SpO2 97 %. Physical Exam Exam conducted with a supervisor order takers present. Constitutional: General: He is not in acute distress. Appearance: He is not toxic-appearing or diaphoretic. HENT: Head: Normocephalic and atraumatic. Pulmonary: Effort: Pulmonary effort is normal. No accessory muscle usage or respiratory distress. Abdominal: General: Abdomen is flat. Bowel sounds are normal. Palpations: Abdomen is soft. There is no hepatomegaly or splenomegaly. Tenderness: There is no abdominal tenderness. Genitourinary: Comments: Multiple external hemorrhoids, tender. Neurological: Mental Status: He is alert and oriented to person, place, and time. ASSESSMENT/PLAN: 1. External hemorrhoid - ICD9: 455.3, ICD10: K64.4 (primary diagnosis) Try cream Refer to gen surg, appointment made todya - HYDROCORTISONE 2.5 % TOPICAL CREAM WITH PERINEAL APPLICATOR - CONSULT TO GENERAL SURGERY 2. Chronic constipation - ICD9: 564.00, ICD10: K59.09 Dietary changes discussed Try miralax - POLYETHYLENE GLYCOL 3350 17 GRAM/DOSE ORAL POWDER Haley Altman APRN.[facility] History of Present illness Narrative 02-18-2023 Haley Altman APRN.RASTA - 02/18/2023 2:37 PM EST Note Date & Type Note Facility 02-18-2023 History of Presen t illness Narrative Subjective HPI HPI Hany Browning is a 23 year old male who presents today for CC of itchy painful hemorrhoids. This started years ago. Has tried dietary changes and creams without relief. Symptoms are worsened by constipation that is chronic/intermittent. Denies abdominal pain. .Patient presents with: Rectal Problem: Hemorrhoids-very constipated PAST MEDICAL HISTORY Diagnosis Date NEGATIVE HISTORY OF 05-26-2014 Normal Color Vision Skull fracture (HCC) PAST SURGICAL HISTORY Procedure Laterality Date CIRCUMCISION PAST SURGICAL HISTORY OF 07/2011 skull fracture and hematoma ALLERGIES Patient has no known allergies. MEDICATIONS polyethylene glycol 3350 (MIRALAX) 17 gram/dose powder Take 1 heaping cap daily hydrocortisone (ANUSOL-HC) 2.5 % rectal cream by RECTAL route two times a day for 5 days. FAMILY HISTORY Problem Relation Age of Onset Diabetes Maternal Grandmother Hypertension Maternal Grandmother Heart Maternal Grandfather Cancer Maternal Grandmother colon and ovarian Social History Tobacco Use Smoking status: Never Smokeless tobacco: Never Tobacco comments: outside Substance Use Topics Alcohol use: No Drug use: No ROS Objective Blood pressure 122/78, pulse 74, temperature 36.7 C (98.1 F), temperature source Tympanic, resp. rate 16, weight 57.9 kg (127 lb 9.6 oz), SpO2 97 %. Physical Exam Exam conducted with a supervisor order takers present. Constitutional: General: He is not in acute distress. Appearance: He is not toxic-appearing or diaphoretic. HENT: Head: Normocephalic and atraumatic. Pulmonary: Effort: Pulmonary effort is normal. No accessory muscle usage or respiratory distress. Abdominal: General: Abdomen is flat. Bowel sounds are normal. Palpations: Abdomen is soft. There is no hepatomegaly or splenomegaly. Tenderness: There is no abdominal tenderness. Genitourinary: Comments: Multiple external hemorrhoids, tender. Neurological: Mental Status: He is alert and oriented to person, place, and time. ASSESSMENT/PLAN: 1. External hemorrhoid - ICD9: 455.3, ICD10: K64.4 (primary diagnosis) Try cream Refer to gen surg, appointment made todya - HYDROCORTISONE 2.5 % TOPICAL CREAM WITH PERINEAL APPLICATOR - CONSULT TO GENERAL SURGERY 2. Chronic constipation - ICD9: 564.00, ICD10: K59.09 Dietary changes discussed Try miralax - POLYETHYLENE GLYCOL 3350 17 GRAM/DOSE ORAL POWDER Haley Altman APRN.COAL PULVERIZER OPERATOR documented in this encounter [facility] History of Present illness Narrative 09-12-2021 Mike Yeboah MD - 09/12/2021 11:19 AM EDT Note Date & Type Note Facility 09-12-2021 History of Presen t illness Narrative Patient presents with: Mouth Sores: x 2 days Rectal Problem: hemorrhoids x 1 year but they hurt bad today HPI: Hemorrhoids for 4 years: Flared up for 1 year. They are aggravated by straining with hard or large stool. There is swelling which he sometimes has to push back in. Occasional blood on TP. No blood on or in stool No abdominal pain. Using hemorrhoid cream. Had what sounds like an enema in the ER for constipation 4-5 years ago. Has tried soup and salad diet to increase fiber for hemorrhoids. He also uses fiber powder. Canker sores: Happens once or twice per month on the bottom lip. Has flare for a couple days inside the lower lip, prior flare was 3 weeks ago. Denies chew tobacco. PAST MEDICAL HISTORY Diagnosis Date NEGATIVE HISTORY OF 05-26-2014 Normal Color Vision Skull fracture (HCC) PAST SURGICAL HISTORY Procedure Laterality Date CIRCUMCISION PAST SURGICAL HISTORY OF 07/2011 skull fracture and hematoma MEDICATIONS: No prescriptions on file. ALLERGIES: ALLERGIES No Known Allergies VITALS: BP 118/82 Pulse 60 Temp 36.5 C (97.7 F) (Tympanic) Resp 16 Wt 57.3 kg (126 lb 6.4 oz) SpO2 98% PHYSICAL EXAM: GEN: pleasant, no acute distress, alert HEENT: PERRL, EOMI, MMM. 1mm white and red ulcer on the mucosa of the inner lower lip on the right side. NECK: supple, no lymphadenopathy, no thyromegaly HEART: regular rate, regular rhythm, no murmurs LUNGS: clear to auscultation, no wheezes or crackles, no increased WOB ABD: soft, non-distended, no masses palpated, non-tender RECTAL: No external fissures or masses of the anus. Photo of anus shows bulges of the bilateral anus. EXT: no clubbing, no cyanosis, no edema ASSESSMENT/PLAN: 1. Aphthous ulcer of mouth - ICD9: 528.2, ICD10: K12.0 (primary diagnosis) Most cases are idiopathic. May follow up with ENT if he would like evaluation. 2. Internal hemorrhoids - ICD9: 455.0, ICD10: K64.8 Continue fiber to achieve optimal stool consistency. May continue hemorrhoid cream as needed. - CONSULT TO GENERAL SURGERY to discuss other treatment options. Mike Yeboah MD documented in this encounter [facility] Evaluation note Note Date & Type Note Facility documented in this encounter [facility] Evaluation note Note Date & Type Note Facility documented in this encounter [facility] Evaluation note Note Date & Type Note Facility documented in this encounter [facility] Reason for Referral Specialty Diagnoses / Procedures Referred By Contac t Referred To Contact General Surgery Diagnoses Internal hemorrhoids Procedures CONSULT TO GENERAL SURGERY OFFICE/OUTPATIENT [facility] 60-74 MINUTES Mike Yeboah MD [address] [place] [address] Referral ID Status Reason Start Date Expiration Date Visits Requested Visits Authorized [id number] Authorized PCP Requested Referral 09/12/2021 09/12/2022 1 1 Specialty Diagnoses / Procedures Referred By Contac t Referred To Contact General Surgery Diagnoses External hemorrhoid Procedures CONSULT TO GENERAL SURGERY OFFICE/OUTPATIENT [facility] 60-74 MINUTES Haley Altman APRN.CNP [address] [place] [address] Referral ID Status Reason Start Date Expiration Date Visits Requested Visits Authorized [id number] Authorized PCP Requested Referral 3 02/18/2024 1 1 Specialty Diagnoses / Procedures Referred By Contac t Referred To Contact Colon and Rectal Surgery Diagnoses External hemorrhoid Procedures CONSULT TO COLO-RECTAL SURGERY OFFICE/OUTPATIENT [facility] 60-74 MINUTES Maribell Elliott MD [address] [place] [address] Referral ID Status Reason Start Date Expiration Date Visits Requested Visits Authorized [id number] Authorized PCP Requested Referral 3 02/24/2024 1 1 Summary Purpose Family History No Family History Records Found Advance Directives No Advanced Directives Records Found Additional Source Comments Source Comments (unrecognize d section and content) In the event this informatio n is protected by the Federal Confidentiality of Alcohol and Drug Abuse Patient Records regulations: The Federal rules restrict any use of the information to criminally investigate or prosecute any alcohol or drug abuse patient.[facility] the event this information is protected by the Federal Confidentiality of Alcohol and Drug Abuse Patient Records regulations: The Federal rules restrict any use of the information to criminally investigate or prosecute any alcohol or drug abuse patient.[facility] the event this information is protected by the Federal Confidentiality of Alcohol and Drug Abuse Patient Records regulations: The Federal rules restrict any use of the information to criminally investigate or prosecute any alcohol or drug abuse patient.[facility] Reason for Visit (unrecogniz ed section and content) Reason Comments Rectal Problem Hemorrhoids-very con stipated Reason Comments Consult Hemorrhoids Specialty Diagnoses / Procedures Referred By Uday t Referred To Contact General Surgery Diagnoses External hemorrhoid Procedures CONSULT TO GENERAL SURGERY OFFICE/OUTPATIENT NEW HIGH MDM 60-74 MINUTES Haley Altman APRN.COAL PULVERIZER OPERATOR [address] [place] [address] Referral ID Status Reason Start Date Expiration Date V isits Requested Visits Authorized [id number] Closed PCP Requested Referral 02/18/2023 02/18/2024 1 1 Care Teams (unrecognized sec tion and content) Chargeback Analyst Relationship Specialty Start Date End Date Danielito Urena MD [address] [place] [address] PCP - General Pediatrics 04/12/20 (unrecognized sect ion and content) No Status Records Found INFORMATION SOURCE (unrecogn ized section and content) FOR RECORDS PERTAINING TO PATIENTS WHO ARE OR HAVE BEEN ENROLLED IN A CHEMICAL DEPENDENCY/SUBSTANCEABUSE PROGRAM, SOME INFORMATION MAY BE OMITTED. This clinical summary was aggregated from multiple sources. Caution should be exercised in using it in the provision of clinical care. This summary normalizes information from multiple sources, and as a consequence, information in this document may materially change the coding, format and clinical context of patient data. In addition, data may be omitted in some cases. CLINICAL DECISIONS SHOULD BE BASED ON THE PRIMARY CLINICAL RECORDS. [email or web address] [facility]. provides no warranty or guarantee of the accuracy or completeness of information in this document.
== END 2023-05-05 11:58 | disposition left against medical advice (07) ==
LOC: ED 12:18
PROVIDERS: Emergency Provider Student in an Organized Health Care Education/Training Program; Visit Provider Student in an Organized Health Care Education/Training Program
DX: Z53.21 Procedure and treatment not carried out due to patient leaving prior to being seen by health care provider (principal)
CPT/HCPCS: 87631